=== PATIENT | female | born 1990 | race Caucasian/White ===

== ENCOUNTER 2016-12-03 21:27 | Emergency (ER) | payer OTHER ==
[2016-12-03] MEDS ORDERED: NEB-ALBUTEROL 2.5 MG/3 ML INH ONE (23:35)
[2016-12-03] MEDS ORDERED: DIPHENHYDRAMINE 50 MG/ML VIAL ONE (23:48)
[2016-12-03] MEDS ORDERED: METHYLPRED SOD SUCC 125 MG/2 ML VIAL ONE (23:49)
[2016-12-03] MEDS ORDERED: DIPHENHYDRAMINE 25 MG CAP ONE (23:56)
== END 2016-12-04 01:08 | disposition home or self-care (01) ==
LOC: ER 21:47
DX: L27.0 Generalized skin eruption due to drugs and medicaments taken internally (principal); T36.0X5A Adverse effect of penicillins, initial encounter; J98.01 Acute bronchospasm; J02.0 Streptococcal pharyngitis; B95.5 Unspecified streptococcus as the cause of diseases classified elsewhere; J45.909 Unspecified asthma, uncomplicated; Z79.51 Long term (current) use of inhaled steroids
CPT/HCPCS: 36415; 71020; 80053; 84703; 85025; 94640; 96372; 99283; J2930